=== PATIENT | male | born 1995 | race African-American/Black ===

== ENCOUNTER 2017-01-25 11:39 | Emergency (ER) | payer SELFPAY ==
[2017-01-25 11:50] VITALS: BP 139/77
[2017-01-25 12:26] LABS: BILIRUBIN,URINE SMALL (NEG); GLUCOSE,URINE NEGATIVE (NEG); NITRITE,URINE NEGATIVE (NEG); PROTEIN,URINE 30 mg/dL (NEG-TRACE)
[2017-01-25] MEDS ORDERED: cefTRIAXone IM 250 MG VIAL IM ONE (12:30)
[2017-01-25] MEDS ORDERED: metroNIDAZOLE 500 MG TABLET PO ONE (12:30)
[2017-01-25] MEDS ORDERED: AZITHROMYCIN 250 MG TABLET. PO ONE (12:30)
--- NOTE | 2017-01-25 12:32 | PHYS DOC ---
Past Medical History Past Medical History: No Pertinent History Past Surgical History: No Surgical History Alcohol Use: None Drug Use: None Adult General Chief Complaint Chief Complaint: SEXUALLY TRANSMITTED DISEASE HPI HPI Patient is a 21 year old male presents emergency department stating that he has had been having green colored penile drainage. Also been having burning with urination. He does state that he's had 2 sexual partners. He denies any fever, chills or any nausea vomiting he denies any abdominal pain or discomfort. Patient does state he's had gonorrhea in the past. Review of Systems Review of Systems Constitutional: Denies fever or chills [] Eyes: Denies change in visual acuity, redness, or eye pain [] HENT: Denies nasal congestion or sore throat [] Respiratory: Denies cough or shortness of breath [] Cardiovascular: No additional information not addressed in HPI [] GI: Denies abdominal pain, nausea, vomiting, bloody stools or diarrhea [] : Denies dysuria or hematuria. Complaint of green penile drainage Musculoskeletal: Denies back pain or joint pain [] Integument: Denies rash or skin lesions [] Neurologic: Denies headache, focal weakness or sensory changes [] Endocrine: Denies polyuria or polydipsia [] Current Medications Current Medications Current Medications Medications (Trade) Dose Ordered Sig/Jairo Start Time Stop Time Status Last Admin Dose Admin Azithromycin (Zithromax) 1,000 mg 1X ONCE 01/25/17 12:30 01/25/17 12:31 DC Ceftriaxone Sodium (Rocephin Im) 250 mg 1X ONCE 01/25/17 12:30 01/25/17 12:31 DC Metronidazole (Flagyl) 2,000 mg 1X ONCE 01/25/17 12:30 01/25/17 12:31 DC Allergies Allergies Allergies Coded Allergies Type Severity Reaction Last Updated Verified No Known Drug Allergies 06/04/15 No Physical Exam Physical Exam Constitutional: Well developed, well nourished, no acute distress, non-toxic appearance. [] HENT: Normocephalic, atraumatic, bilateral external ears normal, oropharynx moist, no oral exudates, nose normal. [] Eyes: PERRLA, EOMI, conjunctiva normal, no discharge. [] Neck: Normal range of motion, no tenderness, supple, no stridor. [] Cardiovascular:Heart rate regular rhythm, no murmur [] Lungs & Thorax: Bilateral breath sounds clear to auscultation [] Abdomen: Bowel sounds normal, soft, no tenderness, no masses, no pulsatile masses. [] Skin: Warm, dry, no erythema, no rash. [] Back: No tenderness Extremities: No tenderness, no cyanosis, no clubbing, ROM intact, no edema. [] Neurologic: Alert and oriented X 3, normal motor function, normal sensory function, no focal deficits noted. [] Psychologic: Affect normal, judgement normal, mood normal. [] Penile area was examined with no lesions or tenderness noted no drainage noted at this time. KAMALA Santos was at bedside during scrotal examination Current Patient Data Vital Signs Vital Signs Date Time Temp Pulse Resp B/P (MAP) Pulse Ox O2 Delivery O2 Flow Rate FiO2 01/25/17 11:50 97.5 84 18 97 Room Air 97.5 Lab Values Laboratory Tests Test 01/25/17 12:15 Urine Collection Type Unknown Urine Color Yellow Urine Clarity Cloudy Urine pH 7.0 Urine Specific [place] >=1.030 Urine Protein 30 mg/dL (NEG-TRACE) Urine Glucose (UA) Negative mg/dL (NEG) Urine Ketones (Stick) >=80 mg/dL (NEG) Urine Blood Small (NEG) Urine Nitrite Negative (NEG) Urine Bilirubin Small (NEG) Urine Urobilinogen Dipstick 1.0 mg/dL (0.2 mg/dL) Urine Leukocyte Esterase Large (NEG) Urine RBC 0 /HPF (0-2) Urine WBC Tntc /HPF (0-4) Urine Bacteria 0 /HPF (0-FEW) Urine Mucus Mod /LPF EKG EKG [] Radiology/Procedures Radiology/Procedures [] Course & Med Decision Making Course & Med Decision Making Pertinent Labs and Imaging studies reviewed. (See chart for details) Patient was provided with Rocephin, Flagyl and Zithromax medication for STDs. He was instructed that he would be notified in 3-4 days if the STDs were positive. He was also instructed to avoid sexual intercourse for 2 weeks. Patient's urine was positive for leukocyte Estrace. We'll place patient on Cipro 1 tablet twice a for the next 7 days. Patient will be discharged home with recommendations for plenty of fluids such as water and cranberry juice. Also recommended patient to avoid cranberry juice cocktail carbonate beverages citrus fruits and alcohol disease are considered irritants to the bladder. Patient was provided with signs and symptoms to return back to emergency department. [] Dragon Disclaimer Dragon Disclaimer This electronic medical record was generated, in whole or in part, using a voice recognition dictation system. Departure Departure Impression: Primary Impression: UTI (urinary tract infection) Additional Impression: Concern about STD in male without diagnosis Disposition: 01 HOME, SELF-CARE Condition: STABLE Referrals: NO PCP (PCP) Patient Instructions: Sexually Transmitted Disease, [id number], Urinary Tract Infection, [id number] Additional Instructions: Your urine was positive for urinary tract infection. You'll be treated for this with antibiotics. You have also been treated prophylactically for sexually transmitted infections. The results will be back in approximately 3-4 days. He'll be notified by a phone call in regards to the culture if it is positive. Avoid sexual intercourse for the next 2 weeks. Medications prescribed. Drink plenty of fluids such as water and cranberry juice. Avoid cranberry juice cocktail, carbonated beverages, citrus fruits and alcohol sees her considered irritants to the bladder. Whenever having sexual intercourse it is advisable to use condoms. Follow-up primary care physician next 7-10 days. Return back to emergency prior signs and symptoms of become worse. Scripts Ciprofloxacin Hcl (CIPRO) 500 Mg Tablet 1 TAB PO BID, #14 TAB Prov: MEÑO ELIZABETH APRN 01/25/17 Problem Qualifiers MEÑO ELIZABETH APRN January 25, 2017 12:32
[2017-01-25 12:37] LABS: BACTERIA,URINE 0 /HPF (0-FEW); RBC,URINE 0 /HPF (0-2); WBC,URINE TNTC /HPF (0-4)
[2017-01-25] MEDS ORDERED: CIPR500T94 PO (12:43)
--- NOTE | 2017-01-30 11:54 | VNOTE ---
CALL BACK NOTE CALL BACK Microbiology 01/25/17 Urine Culture - Final, Complete 01/25/17 Urine Culture Result 1 (JULISSA) - Final, Complete Attempted to contact patient at number [phone]. Patient's gonorrhea test was positive. He has been treated for this in the emergency department. Message was left with his family member for him to return the call. MEÑO ELIZABETH APRN January 30, 2017 11:54
== END 2017-01-25 12:50 | disposition home or self-care (01) ==
LOC: ER 11:39
DX: N39.0 Urinary tract infection, site not specified (principal)
CPT/HCPCS: 81001; 87086; 87491; 87591; 96372; 99284; J0696; Q0144

== ENCOUNTER 2018-08-03 07:59 | Emergency (ER) | payer SELFPAY ==
[~2018-08-03] VITALS: Ht 190.5 cm; Wt 86.2 kg
[~2018-08-03 07:59] MED LIST: CIPR500T94 PO
[2018-08-03 08:11] VITALS: BP 155/94
[2018-08-03] MEDS ORDERED: cefTRIAXone IM 250 MG VIAL IM ONE (08:30)
[2018-08-03] MEDS ORDERED: AZITHROMYCIN 250 MG TABLET. PO ONE (08:30)
--- NOTE | 2018-08-03 08:44 | PHYS DOC ---
Past Medical History Past Medical History: No Pertinent History Past Surgical History: No Surgical History Alcohol Use: None Drug Use: None Adult General Chief Complaint Chief Complaint: SEXUALLY TRANSMITTED DISEASE HPI HPI Patient is a 23 year old [f__sex] who presents with [] Review of Systems Review of Systems Constitutional: Denies fever or chills [] Eyes: Denies change in visual acuity, redness, or eye pain [] HENT: Denies nasal congestion or sore throat [] Respiratory: Denies cough or shortness of breath [] Cardiovascular: No additional information not addressed in HPI [] GI: Denies abdominal pain, nausea, vomiting, bloody stools or diarrhea [] : Denies dysuria or hematuria [] Musculoskeletal: Denies back pain or joint pain [] Integument: Denies rash or skin lesions [] Neurologic: Denies headache, focal weakness or sensory changes [] Endocrine: Denies polyuria or polydipsia [] All other systems were reviewed and found to be within normal limits, except as documented in this note. Current Medications Current Medications Current Medications Medications (Trade) Dose Ordered Sig/Jairo Start Time Stop Time Status Last Admin Dose Admin Azithromycin (Zithromax) 1,000 mg 1X ONCE 08/03/18 08:30 08/03/18 08:31 DC Ceftriaxone Sodium (Rocephin Im) 250 mg 1X ONCE 08/03/18 08:30 08/03/18 08:31 DC Allergies Allergies Allergies Coded Allergies Type Severity Reaction Last Updated Verified No Known Drug Allergies 06/04/15 No Physical Exam Physical Exam Constitutional: Well developed, well nourished, no acute distress, non-toxic appearance. [] HENT: Normocephalic, atraumatic, bilateral external ears normal, oropharynx moist, no oral exudates, nose normal. [] Eyes: PERRLA, EOMI, conjunctiva normal, no discharge. [] Neck: Normal range of motion, no tenderness, supple, no stridor. [] Cardiovascular:Heart rate regular rhythm, no murmur [] Lungs & Thorax: Bilateral breath sounds clear to auscultation [] Abdomen: Bowel sounds normal, soft, no tenderness, no masses, no pulsatile masses. [] Skin: Warm, dry, no erythema, no rash. [] Back: No tenderness, no CVA tenderness. [] Extremities: No tenderness, no cyanosis, no clubbing, ROM intact, no edema. [] Neurologic: Alert and oriented X 3, normal motor function, normal sensory function, no focal deficits noted. [] Psychologic: Affect normal, judgement normal, mood normal. [] Current Patient Data Vital Signs Vital Signs Date Time Temp Pulse Resp B/P (MAP) Pulse Ox O2 Delivery O2 Flow Rate FiO2 08/03/18 08:11 98.8 76 16 155/94 (114) 99 Room Air 98.8 EKG EKG [] Radiology/Procedures Radiology/Procedures [] Course & Med Decision Making Course & Med Decision Making Pertinent Labs and Imaging studies reviewed. (See chart for details) [] Dragon Disclaimer Dragon Disclaimer This electronic medical record was generated, in whole or in part, using a voice recognition dictation system. Departure Departure Impression: Primary Impression: Possible exposure to STD Disposition: 01 HOME, SELF-CARE Condition: STABLE Referrals: NO PCP (PCP) Patient Instructions: Sexually Transmitted Disease Additional Instructions: You have been presumptively treated in the emergency department. We will only call you with positive culture results. This will take a minimum of 3 days to return. Follow-up with your primary care provider for future healthcare needs or return to the emergency department if worsening. CATERINA MOORE APRN Aug 03, 2018 08:44
== END 2018-08-03 08:57 | disposition home or self-care (01) ==
LOC: ER 07:59
DX: Z20.2 Contact with and (suspected) exposure to infections with a predominantly sexual mode of transmission (principal)
CPT/HCPCS: 87491; 87591; 96372; 99283; J0696; Q0144

== ENCOUNTER 2019-06-21 13:35 | Emergency (ER) | payer SELFPAY ==
[~2019-06-21] VITALS: Ht 190.5 cm; Wt 81.2 kg
--- NOTE | 2019-06-21 14:10 | PHYS DOC ---
Past Medical History Past Medical History: No Pertinent History (GABI DAO APRN) Past Surgical History: No Surgical History (GABI DAO APRN) Alcohol Use: None Drug Use: None (GAIB DAO APRN) Attending Signature I have participated in the care of this patient and I have reviewed and agree with all pertinent clinical information above including history, exam, and recommendations. (GRISEL ARNDT MD) Adult General Chief Complaint Chief Complaint: PENIS PROBLEM HPI HPI Patient is a 24 year old male that presents with penile discharge started this morning. He describes the discharge is yellow in color. States that he had unprotected sex on Monday. Denies any pain. Denies any other complaints. (GABI DAO APRN) Review of Systems Review of Systems Constitutional: Denies fever or chills [] Eyes: Denies change in visual acuity, redness, or eye pain [] HENT: Denies nasal congestion or sore throat [] Respiratory: Denies cough or shortness of breath [] Cardiovascular: No additional information not addressed in HPI [] GI: Denies abdominal pain, nausea, vomiting, bloody stools or diarrhea [] : Denies dysuria or hematuria [] Musculoskeletal: Denies back pain or joint pain [] Integument: Reports penile discharge. Neurologic: Denies headache, focal weakness or sensory changes [] Endocrine: Denies polyuria or polydipsia [] Complete systems were reviewed and found to be within normal limits, except as documented in this note. (GABI DAO APRN) Allergies Allergies Allergies Coded Allergies Type Severity Reaction Last Updated Verified No Known Drug Allergies 06/04/15 No (GRISEL ARNDT MD) Physical Exam Physical Exam Constitutional: Well developed, well nourished, no acute distress, non-toxic appearance. [] HENT: Normocephalic, atraumatic, bilateral external ears normal, oropharynx moist, no oral exudates, nose normal. [] Eyes: PERRLA, EOMI, conjunctiva normal, no discharge. [] Neck: Normal range of motion, no tenderness, supple, no stridor. [] Skin: Reports penile discharge Back: No tenderness, no CVA tenderness. [] Extremities: No tenderness, no cyanosis, no clubbing, ROM intact, no edema. [] Neurologic: Alert and oriented X 3, normal motor function, normal sensory function, no focal deficits noted. [] Psychologic: Affect normal, judgement normal, mood normal. [] (GABI DAO APRN) Current Patient Data Vital Signs Vital Signs Date Time Temp Pulse Resp B/P (MAP) Pulse Ox O2 Delivery O2 Flow Rate FiO2 06/21/19 14:17 98.6 69 16 155/94 (114) Room Air 98.6 (GRISEL ARNDT MD) EKG EKG [] (GABI DAO APRN) Radiology/Procedures Radiology/Procedures [] (GABI DAO APRN) Course & Med Decision Making Course & Med Decision Making Pertinent Labs and Imaging studies reviewed. (See chart for details) A medical screening exam was performed on this patient and the patient does not appear to be having a medical emergency. His symptoms are not of sufficient severity and within reasonable medical probability it is unlikely the absence of immediate medical attention would result in placing the health of the individual in serious jeopardy, serious impairment to bodily functions, or serious dysfunction of any bodily organ or part. Will give paperwork showing more appropriate clinics to treat patient. (GABI DAO APRN) Dragon Disclaimer Dragon Disclaimer This electronic medical record was generated, in whole or in part, using a voice recognition dictation system. (GABI DAO APRN) Departure Departure Impression: Primary Impression: Encounter for medical screening examination Additional Impression: Concern about STD in male without diagnosis Disposition: 01 HOME, SELF-CARE Condition: GUARDED Referrals: NO PCP (PCP) Patient Instructions: Medical Screening Exam Additional Instructions: Thank you for visiting [facility]. We appreciate you trusting us with your care. If any additional problems come up don't hesitate to return to visit us. Please follow up with your primary care provider so they can plan additional care if needed and know about the problem that you had. If symptoms worsen come back to the Emergency Department. Any concerning symptoms that start such as chest pain, shortness of air, weakness or numbness on one side of the body, running high fevers or any other concerning symptoms return to the ER. Problem Qualifiers GABI DAO APRN Jun 21, 2019 14:10 GRISEL ARNDT MD Jun 22, 2019 09:32
[2019-06-21 14:17] VITALS: BP 155/94
== END 2019-06-21 14:25 | disposition home or self-care (01) ==
LOC: ER 13:35
DX: Z20.2 Contact with and (suspected) exposure to infections with a predominantly sexual mode of transmission (principal)
CPT/HCPCS: 99281